=== PATIENT | female | born 1980 | race Caucasian/White ===

== ENCOUNTER 2021-10-08 15:32 | Emergency (ER) | payer SELFPAY ==
[2021-10-09 00:44] LABS: HEMOGLOBIN 12.6 gm/dl (12.3-15.3); RED BLOOD COUNT 5.16 M/UL (4.00-5.10); WHITE BLOOD COUNT 10.8 K/UL (4.5-11.0)
[2021-10-09 01:18] LABS: BUN/CREATININE RATIO 23 (0-10)
== END 2021-10-09 02:10 | disposition home or self-care (01) ==
LOC: ER1 15:32
PROVIDERS: Student in an Organized Health Care Education/Training Program
DX: R00.2 Palpitations (principal); I10 Essential (primary) hypertension; Z20.822 Contact with and (suspected) exposure to COVID-19
CPT/HCPCS: 71045; 80048; 82550; 82553; 84484; 85025; 85379; 93005; 99285; U0002

== ENCOUNTER → 2021-10-16 | Outpatient (CLI) | payer OTHER | LOC: HEART 5 15:30 | DX: R00.2 Palpitations (principal) ==